=== PATIENT | male | born 1955 | race African-American/Black ===

== ENCOUNTER 2023-09-15 20:54 | Inpatient (IN) | payer BC, MEDICARE ==
[2023-09-15 22:37] LABS: #Monocytes 0.4 thou/uL (0.11-0.59); #Neutrophils 8.3 thou/uL (1.40-6.50); %Basophils 0.3 % (0.0-1.0); %Eosinophils 0.1 % (0.0-10.0); %Lymphocytes 7.8 % (21.0-51.0); %Monocytes 4.6 % (0.0-10.0); %Neutrophils 86.8 % (42.0-75.0); Hematocrit 25.4 % (42.0-52.0); Mean Corpuscular HGB CONC 31.5 g/dL (32.0-36.0); Mean Corpuscular Hemoglobin 26.8 pg (27.0-31.0); Mean Corpuscular Volume 85.2 fl (78.0-98.0); Mean Platelet Volume 10.4 fL (7.4-10.4); Platelet Count 194 10x3/uL (130-400); RBC Distribution Width 16.8 % (11.5-14.5); Red Blood Cell (RBC) Count 2.98 mill/uL (4.70-6.10); White Blood Cell (WBC) Count 9.5 10x3/uL (4.8-10.8)
[2023-09-15 23:05] LABS: Troponin I 0.061 ng/mL (< 0.028)
[2023-09-15 23:12] LABS: ALT (SGPT) 23 U/L (8-55); AST (SGOT) 24 U/L (5-34); Albumin 2.6 g/dL (3.4-4.8); Alkaline Phosphatase 132 U/L (40-110); Anion Gap 14 mmol/L (10-20); BUN (Urea Nitrogen) 71 mg/dL (8.4-25.7); Bilirubin, Total 0.2 mg/dL (0.2-1.2); Calc. Creatinine Clearance 0 mL/min (70-130); Calcium 7.6 mg/dL (7.8-10.44); Carbon Dioxide 17 mmol/L (23-31); Chloride 113 mmol/L (98-107); Estimated GFR 16; Globulin 3.3 g/dL (2.4-3.5); Glucose 120 mg/dL (80-115); Protein, Total 5.9 g/dL (5.8-8.1); Sodium 138 mmol/L (136-145)
[2023-09-15] MEDS ORDERED: Ondansetron PF 4 MG/2 ML Vial IVP PRN (23:30)
[2023-09-15] MEDS ORDERED: Ondansetron ODT 4 MG TAB SL PRN (23:30)
[2023-09-16] MEDS ORDERED: Dextrose 10% in Water 500 ML ONE (00:33)
[2023-09-16 00:46] VITALS: BMI 30.4
[2023-09-16] MEDS ORDERED: Acetaminophen 325 MG TAB PO PRN (00:49)
[2023-09-16] MEDS ORDERED: Dextrose 5% in Water 1,000 ML IV PRN (00:50)
[2023-09-16] MEDS ORDERED: Glucagon 1 MG/ML KIT IM PRN (00:50)
[2023-09-16] MEDS ORDERED: Dextrose 50% Abboject 50 ML SYRINGE SLOW IVP PRN (00:50)
[2023-09-16] MEDS ORDERED: Furosemide 40 MG/4 ML VIAL SLOW IVP SCH (01:00)
[2023-09-16] MEDS ORDERED: Furosemide 40 MG/4 ML VIAL ONE ×2 (04:11→06:57)
[2023-09-16 04:43] LABS: #Monocytes 0.7 thou/uL (0.11-0.59); #Neutrophils 7.1 thou/uL (1.40-6.50); %Basophils 0.3 % (0.0-1.0); %Eosinophils 0.4 % (0.0-10.0); %Lymphocytes 11.4 % (21.0-51.0); %Monocytes 7.6 % (0.0-10.0); Hematocrit 23.8 % (42.0-52.0); Hemoglobin 7.5 g/dL (14.0-18.0); Mean Corpuscular HGB CONC 31.5 g/dL (32.0-36.0); Mean Corpuscular Hemoglobin 26.8 pg (27.0-31.0); Mean Platelet Volume 9.5 fL (7.4-10.4); Platelet Count 203 10x3/uL (130-400); RBC Distribution Width 16.6 % (11.5-14.5); White Blood Cell (WBC) Count 8.9 10x3/uL (4.8-10.8)
[2023-09-16 04:49] LABS: Hemoglobin A1c 6.6 % (4.0-6.0)
[2023-09-16 05:10] LABS: Anion Gap 15 mmol/L (10-20); BUN (Urea Nitrogen) 73 mg/dL (8.4-25.7); Calc. Creatinine Clearance 23 mL/min (70-130); Calcium 7.7 mg/dL (7.8-10.44); Carbon Dioxide 19 mmol/L (23-31); Chloride 114 mmol/L (98-107); Estimated GFR 15; Iron 53 ug/dL (65-175); Iron Binding Capacity, Total 179 mcg/dL (261-462); Iron Binding Capacity, Total 180 mcg/dL (261-462); Potassium 3.9 mmol/L (3.5-5.1); Sodium 144 mmol/L (136-145)
[2023-09-16 05:13] LABS: Troponin I 0.042 ng/mL (< 0.028)
[2023-09-16 05:16] LABS: Glucose 36 mg/dL (80-115)
[2023-09-16] MEDS: Furosemide 40 MG/4 ML VIAL SLOW IVP SCH ×2 (06:55→16:26)
[2023-09-16] MEDS: Dextrose 10% in Water 1,000 ML IV SCH (07:15)
[2023-09-16] MEDS ORDERED: Heparin 5,000 UNITS/ML VIAL SC SCH (09:00)
[2023-09-16] MEDS ORDERED: hydrALAZINE 20 MG/ML VIAL ONE (09:18)
[2023-09-16] MEDS ORDERED: Heparin 5,000 UNITS/ML VIAL ONE (09:18)
[2023-09-16] MEDS: hydrALAZINE 20 MG/ML VIAL SLOW IVP PRN ×2 (09:24→21:05)
[2023-09-16 09:49] LABS: Sodium, Urine 124 mmol/L (Not Available)
[2023-09-16] MEDS ORDERED: Pantoprazole 40 MG GRANULES PACKET PO SCH (09:49)
[2023-09-16 09:54] LABS: Creatinine, Urine Less than 20.00 mg/dL (63-166); Urea Nitrogen, Random Urine 168 mg/dl
[2023-09-16 09:55] LABS: Protein, Urine Random Quant 149 mg/dL (1-14)
[2023-09-16] MEDS ORDERED: Lansoprazole 3 MG/ML ORAL SUSPENSION PER TUBE SCH (10:45)
[2023-09-16] MEDS ORDERED: Dextrose 10% in Water 250 ML ONE (11:25)
[2023-09-16] MEDS ORDERED: Ferrous Sulfate 325 MG TAB PO SCH (11:30)
[2023-09-16] MEDS ORDERED: Iron, Sodium Ferric Gluconate 250 MG in Sodium Chloride 0.9% 250 ML 250 ML IVPB SCH (12:30)
[2023-09-16] MEDS ORDERED: Spironolactone 25 MG TAB PO SCH (12:30)
[2023-09-16] MEDS ORDERED: EPOETIN ALFA-EPBX (ESRD) 10,000 UNITS/ML VIAL SC SCH (13:00)
[2023-09-16] MEDS: Sodium Bicarbonate Tab 325 MG TAB PO SCH ×2 (16:26→21:00)
[2023-09-16 19:24] LABS: Anion Gap 13 mmol/L (10-20); BUN (Urea Nitrogen) 69 mg/dL (8.4-25.7); Calc. Creatinine Clearance 22 mL/min (70-130); Calcium 7.7 mg/dL (7.8-10.44); Carbon Dioxide 18 mmol/L (23-31); Chloride 111 mmol/L (98-107); Estimated GFR 15; Glucose 82 mg/dL (80-115); Potassium 4.3 mmol/L (3.5-5.1); Sodium 138 mmol/L (136-145)
[2023-09-16] MEDS ORDERED: NIFEdipine XL 60 MG ER.TAB PO SCH (21:22)
[2023-09-17] MEDS: hydrALAZINE 20 MG/ML VIAL SLOW IVP PRN (05:15)
[2023-09-17] MEDS: Furosemide 40 MG/4 ML VIAL SLOW IVP SCH ×2 (05:15→13:11)
[2023-09-17 05:33] LABS: #Eosinphils 0.2 thou/uL (0.0-0.7); #Monocytes 0.7 thou/uL (0.11-0.59); #Neutrophils 9.1 thou/uL (1.40-6.50); %Basophils 0.3 % (0.0-1.0); %Eosinophils 1.5 % (0.0-10.0); %Monocytes 6.4 % (0.0-10.0); %Neutrophils 79.4 % (42.0-75.0); Hematocrit 28.7 % (42.0-52.0); Hemoglobin 9.1 g/dL (14.0-18.0); Mean Corpuscular HGB CONC 31.7 g/dL (32.0-36.0); Mean Corpuscular Hemoglobin 26.8 pg (27.0-31.0); Mean Corpuscular Volume 84.4 fl (78.0-98.0); Mean Platelet Volume 10.5 fL (7.4-10.4); Platelet Count 243 10x3/uL (130-400); RBC Distribution Width 16.6 % (11.5-14.5); White Blood Cell (WBC) Count 11.5 10x3/uL (4.8-10.8)
[2023-09-17 05:56] LABS: Albumin 2.3 g/dL (3.4-4.8); Anion Gap 14 mmol/L (10-20); BUN (Urea Nitrogen) 65 mg/dL (8.4-25.7); BUN/Creatinine Ratio 15.74; Calc. Creatinine Clearance 22 mL/min (70-130); Calcium 7.8 mg/dL (7.8-10.44); Carbon Dioxide 20 mmol/L (23-31); Chloride 111 mmol/L (98-107); Estimated GFR 15; Glucose 59 mg/dL (80-115); Phosphorus 4.6 mg/dL (2.3-4.7); Potassium 3.9 mmol/L (3.5-5.1); Sodium 141 mmol/L (136-145)
[2023-09-17] MEDS: Sodium Bicarbonate Tab 325 MG TAB PO SCH ×3 (08:56→21:07)
[2023-09-17] MEDS: Labetalol HCl 100 MG TAB PO SCH ×2 (08:56→21:07)
[2023-09-17] MEDS: NIFEdipine XL 60 MG ER.TAB PO SCH ×2 (08:56→21:07)
[2023-09-17] MEDS: Spironolactone 25 MG TAB PO SCH (08:56)
[2023-09-17] MEDS: Dextrose 10% in Water 1,000 ML IV SCH ×2 (08:57→23:42)
[2023-09-17] MEDS ORDERED: Lansoprazole 3 MG/ML ORAL SUSPENSION PER TUBE SCH (09:00)
[2023-09-17] MEDS ORDERED: Calcium Carbonate 600 MG + Vit D TAB PO SCH (11:45)
[2023-09-17] MEDS ORDERED: Ergocalciferol 1.25 MG(50,000 UNITS) CAP PO SCH (16:00)
[2023-09-17] MEDS ORDERED: Albumin 25% 25 GM/100 ML BOT IVPB SCH (16:00)
[2023-09-17] MEDS: Calcium Carbonate 600 MG + Vit D TAB PO SCH (18:26)
[2023-09-17] MEDS: Albumin 25% 25 GM/100 ML BOT IVPB SCH (18:27)
[2023-09-18] MEDS: Albumin 25% 25 GM/100 ML BOT IVPB SCH ×2 (00:01→04:37)
[2023-09-18 05:50] LABS: Anion Gap 13 mmol/L (10-20); BUN (Urea Nitrogen) 70 mg/dL (8.4-25.7); Calc. Creatinine Clearance 18 mL/min (70-130); Calcium 7.4 mg/dL (7.8-10.44); Carbon Dioxide 21 mmol/L (23-31); Chloride 110 mmol/L (98-107); Estimated GFR 13; Glucose 155 mg/dL (80-115); Sodium 140 mmol/L (136-145)
[2023-09-18 06:37] LABS: #Eosinphils 0.1 thou/uL (0.0-0.7); #Monocytes 0.8 thou/uL (0.11-0.59); #Neutrophils 7.9 thou/uL (1.40-6.50); %Basophils 0.3 % (0.0-1.0); %Eosinophils 1.2 % (0.0-10.0); %Lymphocytes 11.4 % (21.0-51.0); %Monocytes 7.9 % (0.0-10.0); %Neutrophils 78.9 % (42.0-75.0); Hematocrit 22.8 % (42.0-52.0); Hemoglobin 7.1 g/dL (14.0-18.0); Mean Corpuscular HGB CONC 31.1 g/dL (32.0-36.0); Mean Corpuscular Hemoglobin 26.4 pg (27.0-31.0); Mean Corpuscular Volume 84.8 fl (78.0-98.0); Mean Platelet Volume 10.4 fL (7.4-10.4); Platelet Count 189 10x3/uL (130-400); RBC Distribution Width 16.5 % (11.5-14.5); Red Blood Cell (RBC) Count 2.69 mill/uL (4.70-6.10)
[2023-09-18] MEDS ORDERED: Ferrous Sulfate 325 MG TAB PO SCH (08:00)
[2023-09-18] MEDS: Labetalol HCl 100 MG TAB PO SCH (09:06)
[2023-09-18] MEDS: Calcium Carbonate 600 MG + Vit D TAB PO SCH (09:06)
[2023-09-18] MEDS: NIFEdipine XL 60 MG ER.TAB PO SCH (09:06)
[2023-09-18] MEDS: Sodium Bicarbonate Tab 325 MG TAB PO SCH (09:06)
[2023-09-18] MEDS: Spironolactone 25 MG TAB PO SCH (09:06)
[2023-09-18 12:31] VITALS: BP 116/59; TEMP 98.2
[2023-09-20 10:37] LABS: Kappa Lambda Light Chain Ratio 2.27 (0.26-1.65); Kappa Light Chains 110.2 mg/L (3.3-19.4); Lambda Light Chain 48.6 mg/L (5.7-26.3)
[2023-09-21 15:13] LABS: Albumin-Ur 43.3 % (.); Alpha 1 - Ur 10.2 % (.); Alpha 2 - Ur 11.4 % (.); Beta-Ur 16.3 % (.); Gamma-Ur 18.8 % (.); M-Spike,% Not Observed % (Not Observed); Protein, Urine 247.6 mg/dL (Not Estab.)
[2023-09-21 15:13] LABS: Alpha-1-Globulin, PEP 24h Ur 10.2 % (NOT ESTAB.); Alpha-2-Globulin, PEP 24h Ur 10.1 % (NOT ESTAB.); Beta Globulin, PEP 24h Ur 14.9 % (NOT ESTAB.); Gamma Globulin, PEP 24h Ur 16.9 % (NOT ESTAB.); M-Spike,% PEP 24hr Ur Not Observed % (Not Observed); Protein, PEP 24hr calculated 7345 mg/24 hr (30-150); Protein, Urine 290.9 mg/dL (Not Estab.)
== END 2023-09-18 14:40 | disposition left against medical advice (07) | DRG 637 ==
LOC: ERS 20:54 → ERHOLD 23:13 → 2NO 09-16 14:48
PROVIDERS: ADMIT Internal Medicine; ATTEND Family Medicine
PROC: 30233J1 Transfusion of Nonautologous Serum Albumin into Peripheral Vein, Percutaneous Approach (ICD-10-PCS; principal; 2023-09-17)
DX: E11.649 Type 2 diabetes mellitus with hypoglycemia without coma (principal); I50.33 Acute on chronic diastolic (congestive) heart failure; I13.0 Hypertensive heart and chronic kidney disease with heart failure and stage 1 through stage 4 chronic kidney disease, or unspecified chronic kidney disease; E87.21 Acute metabolic acidosis; N17.9 Acute kidney failure, unspecified; T68.XXXA Hypothermia, initial encounter; E11.22 Type 2 diabetes mellitus with diabetic chronic kidney disease; N18.4 Chronic kidney disease, stage 4 (severe); Z79.899 Other long term (current) drug therapy; D63.1 Anemia in chronic kidney disease; Z98.42 Cataract extraction status, left eye; Z83.3 Family history of diabetes mellitus; Z82.49 Family history of ischemic heart disease and other diseases of the circulatory system; E55.9 Vitamin D deficiency, unspecified; E83.51 Hypocalcemia
CPT/HCPCS: 36415; 36416; 51702; 76700; 80048; 80069; 82306; 82570; 82728; 83036; 83540; 83550; 83605; 83883; 84156; 84166; 84300; 84443; 84484; 84540; 85025; 85379; 86850; 86900; 86901; 93005; 93306; 93970; 96365; 96366; J0360; J1644; J1940; J2916; J7050; P9047; Q5105